=== PATIENT | female | born 1980 | race Caucasian/White ===

== ENCOUNTER 2018-05-25 07:05 | Day surgery (SDC) | payer OTHER ==
[2018-05-25] MEDS ORDERED: DISPOSABLE IT PRN (07:10)
[2018-05-25] MEDS ORDERED: MORPHINE SULFATE IT PRN (07:10)
[2018-05-25] MEDS ORDERED: BUPIVACAINE HCL 0.5 % INJ/PF 30 ML SDV ONE (09:46)
[2018-05-25] MEDS ORDERED: SODIUM BICARBONATE 8.4% INJ 50 MEQ/50 ML DISP.SYRIN ONE (09:51)
--- NOTE | 2018-05-25 13:33 | RADIOLOGY REPORT (SQ) ---
EXAM DESCRIPTION: INJ L/S SPINE EPI/SUB COMPLETED DATE/TIME: 05/25/2018 11:23 am REASON FOR STUDY: LUMBAR PAIN G89.4 CHRONIC PAIN SYNDROME COMPARISON: No previous FLUOROSCOPY TIME: 0.2 minutes 3 digital radiographic images saved to PACS. TECHNIQUE: Intra-operative images acquired during surgical procedure to evaluate progress. NUMBER OF IMAGES: 3 digital radiographic images saved to pac's LIMITATIONS: None. FINDINGS: Intra procedural imaging and fluoro during lumbar pain management procedure performed by Carolyn Richard. Please see the operative report for further details IMPRESSION: Intra procedural imaging and fluoro COMMENT: Quality ID 145: Final reports for procedures using fluoroscopy that document radiation exp osure indices, or exposure time and number of fluorographic images (if radiation exposure indices are not available) Please consult full operative report of the attending physician for description of the procedure. TECHNICAL DOCUMENTATION: JOB ID: [id number] [email or web address]- All Rights Reserved Reading location - IP/workstation name: [email or web address]
[2018-05-25 17:26] VITALS: BP 105/66
[2018-05-25] MEDS ORDERED: (PENDING PHARMACY ID) (Oxycodone Hcl [Oxycontin] 15 MG) PO SCH (18:15)
[2018-05-25] MEDS ORDERED: OXYCODONE HCL SR 10 MG TABLET PO SCH (18:15)
[2018-05-25] MEDS ORDERED: OXYCODONE HCL IR 5 MG TABLET PO SCH (18:30)
--- NOTE | 2018-05-26 04:57 | OPERATIVE REPORT E ---
Operative Report NAME: JAYLON HOLDEN : 1980 AGE: 37Y DATE OF SURGERY: ROOM: 330 PREOPERATIVE DIAGNOSIS: INTRACTABLE PAIN. POSTOPERATIVE DIAGNOSIS: INTRACTABLE PAIN. OPERATION: Intrathecal injection of morphine under fluoroscopic guidance. SURGEON: CHATO MARION M.D. ANESTHESIA: Local. BLOOD LOSS: Minimal/negligible. SPECIMENS REMOVED: None. PROCEDURE: After obtaining informed consent and advising the patient of the risks and benefits, including serious neurological injury, respiratory arrest, allergic reaction, paralysis, aggravation of pain, spinal headache, she was taken to the procedural suite and placed comfortably in the left lateral decubitus position. She was prepped and draped in the usual fashion with chlorhexidine. Using fluoroscopy, the spine was evaluated and a suitable entrance to the L3-4 space was identified. Local anesthesia 1% lidocaine was applied to the midline region. The introducer needle was placed in the midline and position checked in the AP and lateral views. The 24-gauge *------* needle was then advanced penetrating into the intrathecal space, without paresthesias or blood loss. Free-flowing, clear cerebrospinal fluid was identified. One-half milligram of preservative-free morphine was then injected under barbotage technique. When all the medicine was injected, all instrumentation was removed. The region was cleaned, cleansed, and a sterile dressing was applied. The patient was then sent to the observation status for monitoring of respiratory status, EKG, pulse oximetry, and pain control. DICTATING PHYSICIAN: CHATO MARION M.D. [id number] Y#: [id number] ID: [id number] JOB#: [id number] ACCT: [id number] cc:CHATO MARION M.D. >
--- NOTE | 2018-05-26 09:24 | PROGRESS NOTE E ---
Progress Note NAME: JAYLON HOLDEN : 1980 AGE: 37Y DATE: 05/25/2018 ROOM: 330 SUBJECTIVE: The patient was spoken to on the phone and nursing staff was interviewed as well. The patient states she had excellent pain relief following the intrathecal spinal injection. Morphine 0.5 mg was utilized. She was ambulatory. She voided 2 times. She ate well and rested considerably. She notes that her pain relief was excellent for approximately the first 6 hours and then some of the pain returned, but not all of it. She has a history of headaches and had a mild headache later in the day, but did not attribute this to the procedure. She denied any neurological changes or sedation or respiratory depression. This was confirmed with nursing as well. IMPRESSION/PLAN: The patient was advised to be released home and contact me through the hospital verifier operator for any problems that may develop. She will be returning for her second intrathecal morphine administration on 05/27/2018. DICTATING PHYSICIAN: CHATO MARION M.D. [id number] PHY#: [id number] ID: [id number] JOB#: [id number] ACCT: [id number] cc:CHATO MARION M.D. >
== END 2018-05-25 18:45 | disposition home or self-care (01) ==
LOC: CCL 07:05 → 3S 11:12 → CCL 18:45
PROVIDERS: ATTEND Pain Medicine Interventional Pain Medicine
DX: G89.4 Chronic pain syndrome (principal); Z79.899 Other long term (current) drug therapy; Z79.891 Long term (current) use of opiate analgesic; Z88.8 Allergy status to other drugs, medicaments and biological substances; M50.10 Cervical disc disorder with radiculopathy, unspecified cervical region
CPT/HCPCS: 62323; J2274; J3490 ×3

== ENCOUNTER 2018-05-27 08:07 | Day surgery (SDC) | payer OTHER ==
[~2018-05-27 08:07] MED LIST: DISPOSABLE IT PRN; MORPHINE SULFATE IT PRN
[2018-05-27] MEDS ORDERED: SODIUM BICARBONATE 8.4% INJ 50 MEQ/50 ML DISP.SYRIN ONE (08:58)
--- NOTE | 2018-05-27 10:20 | RADIOLOGY REPORT (SQ) ---
EXAM DESCRIPTION: INJ L/S SPINE EPI/SUB COMPLETED DATE/TIME: 05/27/2018 9:49 am REASON FOR STUDY: LUMBAR PAIN COMPARISON: None. FLUOROSCOPY TIME: 0.3 minute 4 images saved to PACS. TECHNIQUE: Intra-operative images acquired during surgical procedure to evaluate progress. NUMBER OF IMAGES: 4 image LIMITATIONS: None. FINDINGS: Fluoroscopic images were obtained for an epidural injection. Please refer to the surgeon' s operative report for additional information IMPRESSION: IMAGE(S) OBTAINED DURING PROCEDURE. COMMENT: Quality ID 145: Final reports for procedures using fluoroscopy that document radiation exp osure indices, or exposure time and number of fluorographic images (if radiation exposure indices are not available) Please consult full operative report of the attending physician for description of the procedure. TECHNICAL DOCUMENTATION: JOB ID: [id number] [employer]- All Rights Reserved Reading location - IP/workstation name: [email or web address]
[2018-05-27] MEDS ORDERED: OXYCODONE HCL PO PRN (14:24)
[2018-05-27] MEDS ORDERED: IBUPROFEN 800 MG PO PRN (14:27)
[2018-05-27] MEDS ORDERED: TIZANIDINE HCL 4 MG TABLET PO PRN (14:27)
[2018-05-27] MEDS ORDERED: CHLORZOXAZONE 750 MG PO PRN (14:27)
[2018-05-27] MEDS ORDERED: LORAZEPAM 1 MG TABLET PO PRN (14:27)
[2018-05-27] MEDS ORDERED: OXYCODONE HCL IR 5 MG TABLET PO PRN (14:28)
[2018-05-27] MEDS ORDERED: IBUPROFEN 800 MG TABLET PO PRN (14:55)
[2018-05-27 16:28] VITALS: BP 120/94
[2018-05-27] MEDS ORDERED: (PENDING PHARMACY ID) (Oxycodone Hcl [Oxycontin] 15 MG) PO SCH (18:00)
[2018-05-27] MEDS ORDERED: AMITRIPTYLINE HCL 25 MG TABLET PO SCH (22:00)
[2018-05-28] MEDS ORDERED: LANSOPRAZOLE 30 MG TAB.RAP.DR PO SCH (08:00)
[2018-05-28] MEDS ORDERED: MULTIVITAMIN TABLET PO SCH (10:00)
[2018-05-28] MEDS ORDERED: (PENDING PHARMACY ID) (Esomeprazole Magnesium [Esomeprazole Magnesium] 40 MG) PO SCH (10:00)
[2018-05-28] MEDS ORDERED: DESVENLAFAXINE SUCCINATE 25 MG PO SCH (10:00)
[2018-05-28] MEDS ORDERED: (PENDING PHARMACY ID) (Gabapentin [Gralise] 1,800 MG) PO SCH (10:00)
[2018-05-28] MEDS ORDERED: (PENDING PHARMACY ID) (Mv-Min/Iron/Folic/Calcium/Vitk [One-A-Day Women's Tablet] 1 EACH) PO SCH (10:00)
[2018-05-28] MEDS ORDERED: MULTIVITAMIN WITH MINERALS PO SCH (10:00)
--- NOTE | 2018-06-01 13:02 | OPERATIVE REPORT E ---
Operative Report NAME: JAYLON HOLDEN : 1980 AGE: 37Y DATE OF SURGERY: 05/27/2018 ROOM: 608 PREOPERATIVE DIAGNOSIS: Intractable chronic back pain. POSTOPERATIVE DIAGNOSIS: Intractable chronic back pain. OPERATIVE PROCEDURE: Fluoroscopically guided lumbar intrathecal injection of preservative-free morphine. SURGEON: CHATO MARION M.D. INDICATIONS: Chronic pain. PROCEDURE NOTE: After obtaining informed consent, apprising the patient of the risks and benefits, including serious neurological injury, pain and infection, aggravation of pain, morphine overdose, allergic reaction, and , she was taken to the fluoroscopic suite and placed comfortably in the left lateral decubitus position. Fluoroscopy was utilized to evaluate the spine and a suitable entrance site was identified at the L3-4 interspace. The spine was prepped with chlorhexidine and then draped. Skin wheal with 1% lidocaine was placed over the interspace in the midline. Subcutaneous tissues were anesthetized as well with a total volume approximately 2 mL of the 1% preservative-free lidocaine. The Sprotte needle introducer was then inserted in the midline aiming towards the midline as seen in AP and lateral views. The Sprotte needle itself, 24 gauge, was then inserted through the introducer needle, entered into the intrathecal space without difficulty. The transient paresthesia was noted which resolved quickly. Free flow and clear cerebrospinal fluid was returned through the needle. The preservative-free morphine, total volume 0.75 mL, with total milligram of 0.75 mg was injected using barbotage technique. All instrumentation was then removed. The patient tolerated this well. The region was cleansed and a sterile dressing was placed. She was then placed in the observation center in the ICU bed for monitoring. DICTATING PHYSICIAN: CHATO MARION M.D. [id number] PHY#: [id number] ID: [id number] JOB#: [id number] ACCT: [id number] cc:CHATO MARION M.D. >
--- NOTE | 2018-06-01 13:23 | PROGRESS NOTE E ---
Progress Note NAME: JAYLON HOLDEN : 1980 AGE: 37Y DATE: 05/27/2018 ROOM: 608 INTERVAL HISTORY: The patient is a nurse followed by me. The patient spoke with me on the phone while in observation approximately 2 hours after her injection of morphine. She was noting some burning and discomfort at the injection site. No swelling or redness or erythema was noted per nursing. PLAN: The patient, at this time, had not noted greatly or appreciative improvement in pain. She wanted to continue to wait and observe the response, which I agreed with. She will remain in the observation status in a monitored bed during this time and contact will be within several hours to assess any further change or improvement of pain as a result of the *------* morphine. DICTATING PHYSICIAN: CHATO MARION M.D. [id number] PHY#: [id number] ID: [id number] JOB#: [id number] ACCT: [id number] cc:CHATO MARION M.D. >
--- NOTE | 2018-06-01 13:32 | PROGRESS NOTE E ---
Progress Note NAME: JAYLON HOLDEN : 1980 AGE: 37Y DATE: 05/27/2018 ROOM: 608 INTERVAL HISTORY: The patient was contacted approximately 5 hours after her intrathecal injection to determine her response. Initially she was not certain if the medication was helping. At this point she feels that she has at least 50% to 60% improvement in her pain. Her injection site tenderness is improved as well. She strongly wishes to proceed with the implant of the intrathecal programmable morphine pump. She has been advised to continue to monitor the effects and will be released at approximately the 8-hour neptali, assuming no untoward events or side effects develop. Follow up will be arranged in the clinic on an outpatient basis to further assess her response and need for additional testing or proceed with placement of the intrathecal pump. DICTATING PHYSICIAN: CHATO MARION M.D. [id number] PHY#: [id number] ID: [id number] JOB#: [id number] ACCT: [id number] cc:CHATO MARION M.D. >
== END 2018-05-27 16:57 | disposition home or self-care (01) ==
LOC: CCL 08:07 → ICU 10:47 → CCL 16:57
PROVIDERS: ATTEND Pain Medicine Interventional Pain Medicine
DX: G89.4 Chronic pain syndrome (principal); M50.10 Cervical disc disorder with radiculopathy, unspecified cervical region; Z88.8 Allergy status to other drugs, medicaments and biological substances; Z79.899 Other long term (current) drug therapy; Z79.891 Long term (current) use of opiate analgesic
CPT/HCPCS: 62323; J2274; J3490 ×2

== ENCOUNTER 2018-06-02 08:09 | Day surgery (SDC) | payer OTHER ==
[2018-06-02] MEDS ORDERED: SODIUM BICARBONATE 8.4% INJ 50 MEQ/50 ML DISP.SYRIN ONE (09:16)
[2018-06-02] MEDS ORDERED: DISPOSABLE IT PRN (09:33)
[2018-06-02] MEDS ORDERED: MORPHINE SULFATE IT PRN (09:33)
--- NOTE | 2018-06-02 15:13 | RADIOLOGY REPORT (SQ) ---
EXAM DESCRIPTION: INJ C/T SPINE EPI/SUB COMPLETED DATE/TIME: 06/02/2018 10:43 am REASON FOR STUDY: PAIN G89.4 CHRONIC PAIN SYNDROME COMPARISON: 05/27/2018, 05/25/2018 FLUOROSCOPY TIME: 0.6 minutes 103 digital fluoroscopic images saved to PACS. TECHNIQUE: Intra-operative images acquired during surgical procedure to evaluate progress. NUMBER OF IMAGES: 103 digital fluoroscopic images LIMITATIONS: None. FINDINGS: Intra procedural imaging and fluoro during pain management procedure performed by Dr. Chepe rivera. IMPRESSION: IMAGE(S) OBTAINED DURING PROCEDURE. COMMENT: Quality ID 145: Final reports for procedures using fluoroscopy that document radiation exp osure indices, or exposure time and number of fluorographic images (if radiation exposure indices are not available) Please consult full operative report of the attending physician for description of the procedure. TECHNICAL DOCUMENTATION: JOB ID: [id number] [employer]- All Rights Reserved Reading location - IP/workstation name: [email or web address]
[2018-06-02] MEDS ORDERED: OXYCODONE HCL SR 10 MG TABLET PO ONE (17:00)
[2018-06-02] MEDS ORDERED: OXYCODONE HCL IR 5 MG TABLET PO ONE (17:00)
[2018-06-02 17:59] VITALS: BP 112/75
== END 2018-06-02 18:15 | disposition home or self-care (01) ==
LOC: CCL 08:09 → ICU 10:29 → CCL 18:15
PROVIDERS: ATTEND Pain Medicine Interventional Pain Medicine
DX: G89.4 Chronic pain syndrome (principal); M50.10 Cervical disc disorder with radiculopathy, unspecified cervical region; Z79.899 Other long term (current) drug therapy; Z79.891 Long term (current) use of opiate analgesic
CPT/HCPCS: 62321; J2274; J3490 ×2

== ENCOUNTER 2018-06-05 06:00 | Day surgery (SDC) | payer OTHER ==
[~2018-06-05 06:00] MED LIST changes: +CEFAZOLIN 1 GM/D5W RTU 1 GM/50 ML RTUPB IV ONE; +CEFAZOLIN 1 GM/D5W RTU 1 GM/50 ML RTUPB IV PRN; -DISPOSABLE IT PRN; -MORPHINE SULFATE IT PRN
[2018-06-05 06:26] LABS: HEMOGLOBIN 13.6 g/dL (12.0-15.5); MEAN CORPUSCULAR HEMOGLOBIN 31.5 pg (27.0-33.4); MEAN CORPUSCULAR VOLUME 93 fl (80-97); PLATELET COUNT 294 10^3/uL (150-450); RED BLOOD COUNT 4.32 10^6/uL (3.72-5.28); RED CELL DISTRIBUTION WIDTH 12.8 % (11.5-14.0); WHITE BLOOD COUNT 7.9 10^3/uL (4.0-10.5)
[2018-06-05] MEDS ORDERED: LIDOCAINE 1% INJ-PF (10 MG/ML) 30 ML SDV ONE (06:33)
[2018-06-05] MEDS ORDERED: SODIUM BICARBONATE 8.4% INJ 50 MEQ/50 ML DISP.SYRIN ONE (06:33)
[2018-06-05] MEDS ORDERED: BUPIVACAINE HCL 0.25% /EPINEPHRINE INJ/PF 30 ML SDV ONE ×2 (06:33→08:38)
[2018-06-05] MEDS ORDERED: FENTANYL CITRATE INJ/PF 100 MCG/2 ML AMPUL ONE ×2 (06:59→07:29)
[2018-06-05] MEDS ORDERED: MIDAZOLAM 2 MG/2 ML INJ ONE (06:59)
[2018-06-05] MEDS ORDERED: PROPOFOL INJ 200 MG/20 ML VIAL IV ONE ×2 (07:00→10:07)
[2018-06-05 07:28] LABS: INTERNATIONAL RATION (INR) 0.85
[2018-06-05] MEDS ORDERED: KETAMINE HCL INJ 500 MG/10 ML VIAL ONE (07:29)
[2018-06-05] MEDS ORDERED: MORPHINE SULFATE INJ PF 10 MG/10 ML SDV INJ PRN (07:57)
[2018-06-05] MEDS ORDERED: FENTANYL CITRATE INJ/PF 100 MCG/2 ML AMPUL IV PRN (08:36)
[2018-06-05] MEDS: FENTANYL CITRATE INJ/PF 100 MCG/2 ML AMPUL ONE ×2 (10:15→10:20)
[2018-06-05] MEDS ORDERED: CEFAZOLIN INJ 1 GM VIAL ONE (10:20)
[2018-06-05] MEDS ORDERED: CHLORZOXAZONE 750 MG PO PRN (10:30)
[2018-06-05] MEDS ORDERED: LORAZEPAM 1 MG TABLET PO PRN (10:30)
[2018-06-05] MEDS ORDERED: OXYCODONE HCL PO PRN (10:30)
[2018-06-05] MEDS ORDERED: TIZANIDINE HCL 4 MG TABLET PO PRN (10:30)
[2018-06-05] MEDS ORDERED: IBUPROFEN 800 MG PO PRN (10:30)
--- NOTE | 2018-06-05 11:54 | RADIOLOGY REPORT (SQ) ---
EXAM DESCRIPTION: THORACOLUMBAR SPINE AP/LAT; NO CHG FLUORO COMPLETED DATE/TIME: 06/05/2018 9:43 am REASON FOR STUDY: MORPHINE PUMP PLCMT ASST WITH FLUORO IN OR G89.4 CHRONIC PAIN SYNDROME COMPARISON: None. FLUOROSCOPY TIME: 1.8 minutes 11 digital C-arm images saved to PACS. TECHNIQUE: Intra-operative images acquired during surgical procedure to evaluate progress. NUMBER OF IMAGES: 11 digital C-arm images LIMITATIONS: None. FINDINGS: Intra procedural imaging and fluoro during pain management procedure. Please see the oper ative report for further details IMPRESSION: IMAGE(S) OBTAINED DURING PROCEDURE. COMMENT: Quality ID 145: Final reports for procedures using fluoroscopy that document radiation exp osure indices, or exposure time and number of fluorographic images (if radiation exposure indices are not available) Please consult full operative report of the attending physician for description of the procedure. TECHNICAL DOCUMENTATION: JOB ID: [id number] [employer]- All Rights Reserved Reading location - IP/workstation name: [email or web address]
--- NOTE | 2018-06-05 11:54 | RADIOLOGY REPORT (SQ) ---
EXAM DESCRIPTION: THORACOLUMBAR SPINE AP/LAT; NO CHG FLUORO COMPLETED DATE/TIME: 06/05/2018 9:43 am REASON FOR STUDY: MORPHINE PUMP PLCMT ASST WITH FLUORO IN OR G89.4 CHRONIC PAIN SYNDROME COMPARISON: None. FLUOROSCOPY TIME: 1.8 minutes 11 digital C-arm images saved to PACS. TECHNIQUE: Intra-operative images acquired during surgical procedure to evaluate progress. NUMBER OF IMAGES: 11 digital C-arm images LIMITATIONS: None. FINDINGS: Intra procedural imaging and fluoro during pain management procedure. Please see the oper ative report for further details IMPRESSION: IMAGE(S) OBTAINED DURING PROCEDURE. COMMENT: Quality ID 145: Final reports for procedures using fluoroscopy that document radiation exp osure indices, or exposure time and number of fluorographic images (if radiation exposure indices are not available) Please consult full operative report of the attending physician for description of the procedure. TECHNICAL DOCUMENTATION: JOB ID: [id number] [employer]- All Rights Reserved Reading location - IP/workstation name: [email or web address]
[2018-06-05] MEDS ORDERED: OXYCODONE HCL IR 5 MG TABLET PO PRN (13:00)
--- NOTE | 2018-06-05 13:07 | OPERATIVE REPORT E ---
Operative Report NAME: JAYLON HOLDEN : 1980 AGE: 37Y DATE OF SURGERY: 06/05/2018 ROOM: 426 PREOPERATIVE DIAGNOSIS: Chronic pain syndrome, unresponsive to conservative therapy. POSTOPERATIVE DIAGNOSIS: Chronic pain syndrome, unresponsive to conservative therapy. OPERATIVE PROCEDURES: 1. Implantation of intrathecal catheter. 2. Implantation of programmable refillable drug delivery system pump. 3. Fluoroscopy for needle and catheter placement. 4. Complex programming analysis and refilling of initial pump. SURGEON: CHATO MARION M.D. ANESTHESIA: MAC. COMPLICATIONS: None. SPECIMEN REMOVED: None. BLOOD LOSS: Approximately 10 mL. INDICATIONS: Successful outpatient trial to intrathecal administration of morphine. PROCEDURE NOTE: After obtaining informed consent and advising the patient of the risks and benefits, including serious neurological injury, bleeding, infection, aggravation of pain, paralysis, spinal headache, allergic reaction and , she was taken to the operating room. MAC anesthesia was administered after she was placed in the left lateral decubitus position. She was then prepped over the lumbosacral spine, the right flank, and the entire abdomen below the breast and the pubic region. Chlorhexidine was utilized. After drying, she was draped in the usual standard fashion. It should be noted the pump site over the right abdominal wall region had been predetermined and marked. Fluoroscopy was then utilized to evaluate the spine. The midline was readily palpable. Using fluoroscopy, the levels were determined for an approach to the 2-3 interspace. The skin was then anesthetized at all surgical sites in the abdomen of right flank and the mid lumbar region using 1% lidocaine with bicarb followed by 0.25% bupivacaine with epinephrine. Sharp and blunt dissection were performed down over the pump pocket by Dr. Wren and over the lumbar incision by Dr. Marion. Hemostasis was obtained as necessary with electrocautery. Once a suitable working zone was created in the lumbar region, further fluoroscopy was utilized to evaluate the area and select the appropriate approach. The paraspinal musculature using a left paramedian approach was anesthetized with 1% lidocaine down to the L2-3 interspace with a near midline target. A 15-gauge Tuohy needle was then advanced under fluoroscopic guidance entering into the spinal sac without difficulty. Free flowing clear cerebrospinal fluid was identified. It should be noted that the bevel was placed parallel to the dural fibers upon entry and rotated once into the spinal sac to facilitate advancement of the catheter in a cephalad direction. The catheter was then advanced under fluoroscopic guidance to the top of the T9 region. The Stylette was removed from the catheter and clear free flowing cerebrospinal fluid was noted. An 0 Mersilene pursestring was placed around the needle. Two stay sutures using 2-0 Mersilene were placed just distally to this. The needle was then carefully removed with attention towards not moving the catheter. This was successful. The pursestring was secured. The anchor was then placed over the catheter and down to the pursestring. The butterfly wings were then secured with the stay suture material. It should be noted the pump pocket was completed by Dr. Wren by this time. The subcutaneous tissue from the lumbar incision was then anesthetized to the right flank incision to facilitate passage of the catheter from the lumbar region to the abdominal wall. Catheter was passed without difficulty to the flank and then further from the flank to the abdominal pocket site after additional local anesthesia. The catheter was then attached to its pump adaptor port and all clips secured. Again, free flowing cerebrospinal fluid was noted. The catheter was then connected to the pump without difficulty. The pump was then programmed to purge itself, the catheter, and delivery of 1 mg bolus of intrathecal morphine 1 mg/mL. Stay sutures were placed in the pocket to help the pump stay secure using 2-0 Mersilene. The pump and pocket was copiously irrigated as was the flank and lumbar incision. The catheter was placed easily into the pocket and hemostasis was secured with electrocautery as necessary. The wound was then closed with interrupted vertical mattress sutures using 2-0 Vicryl followed by a second layer of 3-0 Vicryl in the same technique. The skin was then closed with a 4-0 monofilament. Attention was then directed towards closure of the flank incision using the same technique. The lumbar incision was then further irrigated and closed again with 2-0 inverted vertical mattress sutures using the Vicryl. The skin edges came quite nicely together, so the decision at this time was to place the Dermabond tape on all wounds followed by the Dermabond cement. When this was all dried in all 3 locations, Telfa and Tegaderm were placed on this. The patient was then taken to the PACU for further postoperative care and monitoring. DICTATING PHYSICIAN: CHATO MARION M.D. [id number] PHY#: [id number] ID: [id number] JOB#: [id number] ACCT: [id number] cc:CHATO MARION M.D. >
--- NOTE | 2018-06-05 13:09 | EKG REPORT ---
SEVERITY:- OTHERWISE NORMAL ECG - SINUS ARRHYTHMIA, RATE 44-59 : Confirmed by: Nigel Sue MD 05-Jun-2018 13:09:01
[2018-06-05 16:51] VITALS: BP 105/70
[2018-06-05] MEDS ORDERED: OXYCODONE HCL IR 5 MG TABLET PO ONE (17:00)
[2018-06-05] MEDS ORDERED: CHLORZOXAZONE 500 MG TABLET PO PRN (17:37)
[2018-06-05] MEDS ORDERED: AMITRIPTYLINE HCL 25 MG TABLET PO SCH (22:00)
[2018-06-06] MEDS ORDERED: (PENDING PHARMACY ID) (Mv-Min/Iron/Folic/Calcium/Vitk [One-A-Day Women's Tablet] 1 EACH) PO SCH (10:00)
[2018-06-06] MEDS ORDERED: MULTIVITAMIN WITH MINERALS PO SCH (10:00)
[2018-06-06] MEDS ORDERED: (PENDING PHARMACY ID) (Esomeprazole Magnesium [Esomeprazole Magnesium] 40 MG) PO SCH (10:00)
[2018-06-06] MEDS ORDERED: (PENDING PHARMACY ID) (Gabapentin [Gralise] 1,800 MG) PO SCH (10:00)
[2018-06-06] MEDS ORDERED: DESVENLAFAXINE SUCCINATE 25 MG PO SCH (10:00)
[2018-06-06] MEDS ORDERED: (PENDING PHARMACY ID) (Topiramate [Trokendi Xr] 50 MG) PO SCH (10:00)
[2018-06-06] MEDS ORDERED: CERTOLIZUMAB PEGOL IN SCH (10:30)
== END 2018-06-05 18:55 | disposition home or self-care (01) ==
LOC: OROUT 06:00 → 4S 11:35 → OROUT 18:55
PROVIDERS: ATTEND Pain Medicine Interventional Pain Medicine
DX: G89.4 Chronic pain syndrome (principal); Z79.899 Other long term (current) drug therapy; Z79.891 Long term (current) use of opiate analgesic; Z88.8 Allergy status to other drugs, medicaments and biological substances
CPT/HCPCS: 36415; 85027; 85610; 81025; 72080; 93005; 93010; 94762; 62362; C1772; J2250; J2274; J3490 ×4; J0690 ×2; J3010; J2704; 1936